=== PATIENT | female | born 1970 | race Asian ===

== ENCOUNTER 2019-09-14 21:55 | Emergency (ER) | payer BC ==
[~2019-09-14] VITALS: Ht 157.5 cm; Wt 60.3 kg
[2019-09-14 22:21] VITALS: Ht 157.5 cm; Wt 60.3 kg
[2019-09-15 01:20] VITALS: BP 120/70
== END 2019-09-15 01:20 | disposition home or self-care (01) ==
LOC: ED 21:55
DX: B34.9 Viral infection, unspecified (principal); Z03.818 Encounter for observation for suspected exposure to other biological agents ruled out
CPT/HCPCS: 87804; Q0092

== ENCOUNTER 2019-09-16 10:57 | Emergency (ER) | payer BC ==
[~2019-09-16] VITALS: Ht 157.5 cm; Wt 59.4 kg
[2019-09-16 11:11] VITALS: Ht 157.5 cm; Wt 59.4 kg
[2019-09-16 14:00] VITALS: BP 108/62
== END 2019-09-16 13:55 | disposition home or self-care (01) ==
LOC: ED 10:57
DX: J06.9 Acute upper respiratory infection, unspecified (principal); G47.00 Insomnia, unspecified
CPT/HCPCS: J2060

== ENCOUNTER 2019-09-19 11:34 | Emergency (ER) | payer BC, SELFPAY ==
[~2019-09-19] VITALS: Ht 157.5 cm; Wt 59.0 kg
[2019-09-19 11:42] VITALS: Ht 157.5 cm; Wt 59.0 kg
[2019-09-19 12:36] VITALS: BP 121/66
--- NOTE | 2019-09-21 09:31 | NUR ---
Infection Prevention Spoke with patient regarding + COVID-19 test results. States she is feeling much better, hasn't had a fever in several days and her cough is much better. States she has isolated from her and daughter, and that they are without symptoms. Questions answered and my phone number given for any further questons.
== END 2019-09-19 12:36 | disposition home or self-care (01) ==
LOC: ED 11:34
DX: J06.9 Acute upper respiratory infection, unspecified (principal); Z20.828 Contact with and (suspected) exposure to other viral communicable diseases
CPT/HCPCS: U0002

== ENCOUNTER 2019-10-14 11:47 | Emergency (ER) | payer BC, SELFPAY ==
[~2019-10-14] VITALS: Ht 157.5 cm; Wt 59.0 kg
[2019-10-14 12:03] VITALS: Ht 157.5 cm; Wt 59.0 kg
[2019-10-14 12:59] VITALS: BP 112/60
== END 2019-10-14 12:59 | disposition home or self-care (01) ==
LOC: ED 11:47
DX: Z20.828 Contact with and (suspected) exposure to other viral communicable diseases (principal)